=== PATIENT | female | born 1995 | race Caucasian/White ===

== ENCOUNTER 2024-12-08 12:29 | Emergency (ER) | payer OTHER, SELFPAY ==
[2024-12-08 12:31] VITALS: BP 146/96
--- NOTE | 2024-12-08 13:39 | ED.GENMED ---
History of Present Illness
General
Chief Complaint: Musculo-Skeletal Complaint
Time Seen by Provider: 12/08/24 13:06
History of Present Illness
History of Present Illness:
29-year-old female presents the emergency department for evaluation of headache and right shoulder pain after a fall. She was pulled to the ground by her dog while walking her dog. No LOC, denies neck pain or chest pain at this time. Does not
take any blood thinners or antiplatelets
Review of Systems
Review of Systems
Allergies reviewed?: Yes
All Other Systems: ROS reviewed and negative except as documented in HPI and ROS
Phy Exam
Physical Exam
Physical Exam:
GEN: Well appearing, NAD, WDWN
HEENT: Oral mucosa moist, no scleral icterus, no nasal congestion
Cardiac: Regular rate
Lung: No respiratory distress, no tachypnea
MSK: No gross deformity or injuries. Right shoulder is grossly nontender to palpation and displays normal range of motion throughout all waldrop without limitation
Skin: Good color, no pallor or jaundice, no rashes
Neuro: AO x3; CN II-XII grossly intact. BUE strength 5/5 in all waldrop, sensation intact and symmetric. BLE strength 5/5 in all waldrop, sensation intact and symmetric
Psych: Calm, cooperative
Course
Orders/Labs/Results
Orders:
Orders
12/08/24 12:34
Shoulder, Right 2 Views [CR Shoulder - Right Min 2 View] Urgent
Comment:
Reason For Exam: pain s/p fall
Vital Signs
Initial and Last Documented VS:
Initial Vital Signs
Temp Pulse Resp BP Pulse Ox
98.5 F 83 18 146/96 100
12/08/24 12:31 12/08/24 12:31 12/08/24 12:31 12/08/24 12:31 12/08/24 12:31
Last Documented Vital Signs
Temp Pulse Resp BP Pulse Ox
98.5 F 83 18 146/96 100
12/08/24 12:31 12/08/24 12:31 12/08/24 12:31 12/08/24 12:31 12/08/24 12:31
MDM/Problems Addressed
MDM/Problems Addressed:
X-rays were ordered however canceled as the patient declined this upfront, after examination I feel this is reasonable as she has no tenderness and normal range of motion. Neurologically intact no indication for CTH
*Critical Care Note
Total Time (30-74mins, 75-104mins- exclusive of procedures): Not Applicable
ED Attending Note
-
Portions of this chart may have been created with voice recognition software.� Occasional wrong word or��sound alike� substitutions may have occurred due to the inherent limitations of voice recognition software.
Discharge Plan
Departure
Patient Disposition: Home (Routine Discharge)
Date of Disposition: 12/08/24
Time of Disposition: 13:39
Patient with high blood pressure during this ER visit?: No
Discharge Problem:
Contusion of right shoulder, Closed head injury
Instructions: Head injury in adults
Referrals:
NONE,* [Family Provider] -
Interventions
Interventions:
*Risk Screen - Suicide Last Done: 12/08/24 12:31
*General Assessment Last Done: 12/08/24 12:31
*Neglect/Abuse Screening Last Done: 12/08/24 12:31
ED- Fall Risk Assessment Last Done: 12/08/24 12:41
*ED COVID-19 Vaccine History Last Done: 12/08/24 12:31
*Nursing Disposition Last Done: 12/08/24 13:47
ED-Musculoskeletal Assessment Last Done: 12/08/24 12:41
Discharge Date and Time
Discharge Date/Time: 12/08/24 13:48
Print Language: AUSTR[place]
== END 2024-12-08 13:48 | disposition home or self-care (01) ==
LOC: EMR 12:29
PROVIDERS: EMERGENCY PHYSICIAN Emergency Medicine
DX: S40.011A Contusion of right shoulder, initial encounter (principal); S09.90XA Unspecified injury of head, initial encounter; W19.XXXA Unspecified fall, initial encounter
CPT/HCPCS: 99283